=== PATIENT | male | born 1955 | race Caucasian/White ===

== ENCOUNTER → 2018-02-22 | Outpatient (CLI) | payer OTHER ==
[~2018-02-22] MED LIST: ALBU90OI INH; ATOR80 PO; Albenza200 MG PT; HYDR1TAB94 PO; LEVO750 PO; LOSA25 PO; LOSA50 PO; LOSARTAN-HCTZ1 EAC1 PO; LOSHYD100; Mobic15 MG; POTCHL20ER PO; Ventolin/Prove6.7 GM PO; Viagra100 MG PO
[2018-03-01 16:08] LABS: MDMA + METABOLITES Negative (Cutoff=250)
== END ==
LOC: LAB SHORT 09:40 → LAB EV 09:40
PROVIDERS: Physician Assistant
DX: Z51.81 Encounter for therapeutic drug level monitoring (principal); Z79.899 Other long term (current) drug therapy
CPT/HCPCS: G0480